=== PATIENT | female | born 2000 | race Caucasian/White ===

== ENCOUNTER 2019-08-10 22:58 | Emergency (ER) | payer OTHER ==
[~2019-08-10] VITALS: Ht 152.4 cm; Wt 63.5 kg
[2019-08-10 23:05] VITALS: Ht 152.4 cm; Wt 63.5 kg
[2019-08-10 23:36] VITALS: BP 110/58
== END 2019-08-11 00:05 | disposition home or self-care (01) ==
LOC: ED 22:58
DX: F41.9 Anxiety disorder, unspecified (principal)

== ENCOUNTER 2019-11-08 21:45 | Emergency (ER) | payer OTHER ==
[~2019-11-08] VITALS: Ht 152.4 cm; Wt 63.5 kg
[2019-11-08 21:55] VITALS: Ht 152.4 cm; Wt 63.5 kg
[2019-11-08 23:30] VITALS: BP 122/80
== END 2019-11-08 23:30 | disposition home or self-care (01) ==
LOC: ED 21:45
DX: J03.90 Acute tonsillitis, unspecified (principal)

== ENCOUNTER 2020-06-02 20:12 | Emergency (ER) | payer OTHER ==
[~2020-06-02] VITALS: Ht 152.4 cm; Wt 60.8 kg
[2020-06-02 20:18] VITALS: Ht 152.4 cm; Wt 60.8 kg
[2020-06-02 21:51] VITALS: BP 114/57
== END 2020-06-02 21:51 | disposition home or self-care (01) ==
LOC: ED 20:12
DX: S60.221A Contusion of right hand, initial encounter (principal); W22.8XXA Striking against or struck by other objects, initial encounter; Y93.89 Activity, other specified; Y92.89 Other specified places as the place of occurrence of the external cause; Y99.8 Other external cause status

== ENCOUNTER 2020-06-19 18:02 | Emergency (ER) | payer OTHER ==
[~2020-06-19] VITALS: Ht 152.4 cm; Wt 59.4 kg
[2020-06-19 18:14] VITALS: Ht 152.4 cm; Wt 59.4 kg
[2020-06-19 19:06] LABS: BASOPHIL % 0.4 % (0-2); PLATELET COUNT 260 x10^3mcL (130-400); RED CELL DISTRIBUTION WIDTH 14.6 % (11.5-14.5)
[2020-06-19 20:16] VITALS: BP 109/66
== END 2020-06-19 20:16 | disposition home or self-care (01) ==
LOC: ED 18:02
PROVIDERS: Emergency Medicine
DX: O20.0 Threatened abortion (principal); Z3A.01 Less than 8 weeks gestation of pregnancy